=== PATIENT | male | born 1995 | race Caucasian/White ===

== ENCOUNTER → 2022-03-13 06:12 | Outpatient (CLI) | payer BC, SELFPAY ==
[2022-03-13 18:23] LABS: Alanine Aminotransferase 27 U/L (12-78); Albumin Level 3.7 g/dl (3.5-5.0); Albumin/Globulin Ratio 1.5 (1.1-1.8); Alkaline Phosphatase 77 U/L (38-126); Anion Gap 6.3 mEq/L (5-15); Aspartate Amino Transferase 27 U/L (17-59); Bilirubin,Total 0.3 mg/dl (0.2-1.3); Blood Urea Nitrogen 9 mg/dl (9-20); Calcium 8.7 mg/dl (8.4-10.2); Carbon Dioxide 35 mmol/L (22.0-30.0); Chloride 99 mmol/L (98-107); Chol/HDL Ratio 2.9 (1-3.5); Cholesterol 150 mg/dl (140-200); Estimated Glomerular Filt Rate 160 ml/min (>60); GFR (African American) 194 ML/MIN (>60); Globulin 2.4 g/dL (1.3-3.2); Glucose 98 mg/dl (74-100); HDL Cholesterol 51 mg/dl (40-60); Potassium 4.3 mmoL/L (3.5-5.1); Sodium 136 mmol/L (136-145); Total Protein,Serum 6.1 g/dl (6.3-8.2); Triglycerides 68 mg/dl (30-150); VLDL Cholesterol 14 mg/dL (0-40)
[2022-03-13 18:40] LABS: 25-OH Vitamin D, Total 30.3 ng/mL (30-100)
[2022-03-13 18:53] LABS: Thyroid Stimulating Hormone 2.33 uIU/mL (0.465-4.68)
[2022-03-13 18:59] LABS: Basophils # 0.1 K/mm3 (0-0.2); Basophils % 0.6 % (0.1-2.0); Eosinophils # 0.2 K/mm3 (0.0-0.4); Eosinophils % 1.8 % (0.1-12.0); Hematocrit 43.5 % (42.0-52.0); Hemoglobin 12.6 g/dL (14.1-18.0); Lymphocytes # 1.8 K/mm3 (0.7-4.5); Lymphocytes % 21.1 % (10-50); Mean Corpuscular Hemoglobin 29.8 pg (27.0-31.2); Mean Corpuscular Volume 102.9 fl (80-94); Mean Platelet Volume 8.6 fl (7.4-10.4); Monocytes # 0.9 K/mm3 (0.1-1.0); Monocytes % 9.9 % (1.7-9.3); Neutrophils # 5.7 K/mm3 (1.8-7.8); Neutrophils % 66.7 % (37.0-80.0); Platelet Count 220 K/mm3 (142-424); Red Blood Count 4.23 M/mm3 (4.60-6.20); Red Cell Distribution Width 14.9 % (11.5-17.5); White Blood Count 8.5 K/mm3 (4.8-10.8)
[2022-03-15 09:36] LABS: Direct LDL Cholesterol 83 mg/dL (100-129)
== END ==
PROVIDERS: PCP Emergency Medicine; Visit Provider Emergency Medicine
DX: F41.9 Anxiety disorder, unspecified (principal); G25.81 Restless legs syndrome; R53.83 Other fatigue; E55.9 Vitamin D deficiency, unspecified
CPT/HCPCS: 80053; 80061; 82306; 84439; 84443; 85025; 87522; 87902

== ENCOUNTER → 2022-03-28 16:19 | Outpatient (CLI) | payer BC, SELFPAY ==
[2022-04-02 22:02] LABS: Hep A Ab, IgM Negative; Hepatitis B Core Antibody IgM Negative; Hepatitis B Surface Antigen Negative; Hepatitis C Antibody >11.0
== END ==
PROVIDERS: PCP Emergency Medicine; Visit Provider Emergency Medicine
DX: R53.83 Other fatigue (principal); F41.9 Anxiety disorder, unspecified; Z79.899 Other long term (current) drug therapy
CPT/HCPCS: 80074

== ENCOUNTER → 2022-03-28 16:45 | Outpatient (CLI) | payer BC, SELFPAY | PROVIDERS: PCP Emergency Medicine; Visit Provider Emergency Medicine | DX: Z79.899 Other long term (current) drug therapy (principal) ==

== ENCOUNTER → 2022-04-06 11:16 | Outpatient (CLI) | payer BC, SELFPAY ==
--- NOTE | 2022-04-06 12:36 | PC.NURSE ---
PATIENT REFUSED TO FINISH TEST AND WALK TEST. STATED HE WASN'T FEELING WELL
== END ==
PROVIDERS: PCP Emergency Medicine; Visit Provider Emergency Medicine
DX: J44.9 Chronic obstructive pulmonary disease, unspecified (principal)
CPT/HCPCS: 94060; 94727; 94729

== ENCOUNTER → 2022-04-25 11:00 | Outpatient (CLI) | payer BC, SELFPAY ==
[2022-04-25 19:59] LABS: Barbiturates Screen,Urine Negative ng/ml (<200); Benzodiazepines Screen,Urine Positive ng/ml (<200)
[2022-04-25 20:00] LABS: Cannabinoid Screen,Urine Positive ng/ml (<50)
[2022-04-25 20:01] LABS: Cocaine Screen,Urine Positive ng/ml (<300); Methadone Screen,Urine Negative ng/ml (<300)
[2022-04-25 20:02] LABS: Opiate Screen,Urine Negative ng/ml (<300); Phencyclidine Screen,Urine Negative ng/ml (<25)
[2022-04-25 20:25] LABS: Amphetamine/Metha Screen,Urine Positive ng/ml (<1000)
== END ==
PROVIDERS: PCP Emergency Medicine; Visit Provider Emergency Medicine
DX: Z79.899 Other long term (current) drug therapy (principal)
CPT/HCPCS: 80305

== ENCOUNTER → 2022-05-22 11:00 | Outpatient (CLI) | payer BC, SELFPAY ==
[2022-05-22 15:09] LABS: Amphetamine/Metha Screen,Urine Negative ng/ml (<1000)
[2022-05-22 15:11] LABS: Barbiturates Screen,Urine Negative ng/ml (<200)
[2022-05-22 15:12] LABS: Benzodiazepines Screen,Urine Positive ng/ml (<200)
[2022-05-22 15:13] LABS: Cannabinoid Screen,Urine Positive ng/ml (<50); Cocaine Screen,Urine Negative ng/ml (<300)
[2022-05-22 15:14] LABS: Methadone Screen,Urine Negative ng/ml (<300); Opiate Screen,Urine Negative ng/ml (<300)
[2022-05-22 15:16] LABS: Phencyclidine Screen,Urine Negative ng/ml (<25)
== END ==
PROVIDERS: PCP Emergency Medicine; Visit Provider Emergency Medicine
DX: J44.9 Chronic obstructive pulmonary disease, unspecified (principal); Z79.899 Other long term (current) drug therapy
CPT/HCPCS: 80305

== ENCOUNTER → 2022-07-25 10:00 | Outpatient (CLI) | payer BC, SELFPAY ==
[2022-07-25 15:26] LABS: Amphetamine/Metha Screen,Urine Negative ng/ml (<1000)
[2022-07-25 15:27] LABS: Cannabinoid Screen,Urine Positive ng/ml (<50)
[2022-07-25 15:28] LABS: Barbiturates Screen,Urine Negative ng/ml (<200)
[2022-07-25 15:29] LABS: Benzodiazepines Screen,Urine Negative ng/ml (<200); Cocaine Screen,Urine Negative ng/ml (<300)
[2022-07-25 15:30] LABS: Methadone Screen,Urine Negative ng/ml (<300)
[2022-07-25 15:31] LABS: Opiate Screen,Urine Negative ng/ml (<300); Phencyclidine Screen,Urine Negative ng/ml (<25)
== END ==
PROVIDERS: PCP Emergency Medicine; Visit Provider Emergency Medicine
DX: Z79.899 Other long term (current) drug therapy (principal)
CPT/HCPCS: 80305

== ENCOUNTER → 2022-08-02 09:20 | Outpatient (CLI) | payer BC, SELFPAY ==
[2022-08-02 16:37] LABS: Barbiturates Screen,Urine Negative ng/ml (<200)
[2022-08-02 16:38] LABS: Benzodiazepines Screen,Urine Positive ng/ml (<200)
[2022-08-02 16:39] LABS: Cannabinoid Screen,Urine Positive ng/ml (<50); Cocaine Screen,Urine Negative ng/ml (<300)
[2022-08-02 16:40] LABS: Methadone Screen,Urine Negative ng/ml (<300)
[2022-08-02 16:41] LABS: Opiate Screen,Urine Negative ng/ml (<300); Phencyclidine Screen,Urine Negative ng/ml (<25)
[2022-08-02 17:47] LABS: Amphetamine/Metha Screen,Urine Positive ng/ml (<1000)
== END ==
PROVIDERS: PCP Emergency Medicine; Visit Provider Emergency Medicine
DX: Z79.899 Other long term (current) drug therapy (principal)
CPT/HCPCS: 80305

== ENCOUNTER → 2022-08-30 11:03 | Outpatient (CLI) | payer BC, SELFPAY ==
[2022-08-30 15:55] LABS: Amphetamine/Metha Screen,Urine Negative ng/ml (<1000)
[2022-08-30 15:56] LABS: Barbiturates Screen,Urine Negative ng/ml (<200)
[2022-08-30 15:57] LABS: Benzodiazepines Screen,Urine Positive ng/ml (<200); Cannabinoid Screen,Urine Positive ng/ml (<50)
[2022-08-30 15:58] LABS: Cocaine Screen,Urine Negative ng/ml (<300); Methadone Screen,Urine Negative ng/ml (<300)
[2022-08-30 15:59] LABS: Opiate Screen,Urine Negative ng/ml (<300)
[2022-08-30 16:00] LABS: Phencyclidine Screen,Urine Negative ng/ml (<25)
== END ==
PROVIDERS: PCP Emergency Medicine; Visit Provider Emergency Medicine
DX: F41.9 Anxiety disorder, unspecified (principal)
CPT/HCPCS: 80305

== ENCOUNTER 2022-11-15 11:59 | Emergency (ER) | payer MEDICARE, SELFPAY ==
[2022-11-15 12:08] VITALS: BP 149/62; PULSE 54; RESP 18; O2SAT 97; BMI 23.7
[2022-11-15 12:25] VITALS: TEMP 36.8
[2022-11-15 12:37] VITALS: PULSE 52; RESP 22; TEMP 36.8; O2SAT 89; BMI 20.9
--- NOTE | 2022-11-15 12:39 | EXP.UTC ---
Discharge Plan Disposition Patient Disposition: Left Against Medical Advice Condition: Undetermined Prescriptions Prescriptions: No Action ipratropium-albuterol 0.5 mg-3 mg(2.5 mg base)/3 mL solution for nebulization 3 ml inhalation Q4-6H PRN (Reason: shortness of breath or wheezing) Qty: 180 2RF buprenorphine-naloxone 8-2 mg tablet, sublingual 1 tab sublingual methylprednisolone [Medrol (Yuriy)] 4 mg tablets,dose pack See Rx Instructions PO PER PKG DIR Qty: 21 0RF Rx Instructions: PO PER PKG DIR alprazolam [Xanax] 0.5 mg tablet 0.5 mg PO TID Qty: 90 2RF gabapentin 800 mg tablet 800 mg PO TID Qty: 90 2RF escitalopram oxalate [Lexapro] 10 mg tablet 10 mg PO DAILY Qty: 30 0RF azithromycin [Zithromax Z-Yuriy] 250 mg tablet See Rx Instructions PO .COMPLEX Qty: 6 0RF Rx Instructions: For 250 mg dose pack: take 500 mg today (day 1), then 250 mg for 4 days (days 2-5) PO methylprednisolone [Medrol (Yuriy)] 4 mg tablets,dose pack See Rx Instructions PO PER PKG DIR Qty: 21 0RF Rx Instructions: PO PER PKG DIR albuterol sulfate [ProAir HFA] 90 mcg/actuation HFA aerosol inhaler 2 puff inhalation Q6H PRN (Reason: shortness of breath or wheezing) Qty: 8.5 3RF budesonide-formoterol [Symbicort] 160-4.5 mcg/actuation HFA aerosol inhaler See Rx Instructions .ROUTE .COMPLEX Qty: 10.2 0RF Dose Instruction: INHALE 1 DOSE ONCE A DAY Rx Instructions: INHALE 1 DOSE ONCE A DAY albuterol sulfate [Ventolin HFA] 90 mcg/actuation HFA aerosol inhaler See Rx Instructions .ROUTE .COMPLEX Qty: 18 0RF Dose Instruction: 2 PUFFS BY MOUTH EVERY 8 HOURS NEEDED FOR SHORTNESS OF BREATH WHEEZING Rx Instructions: 2 PUFFS BY MOUTH EVERY 8 HOURS NEEDED FOR SHORTNESS OF BREATH WHEEZING Referrals Follow up/Referrals: Fredy Moya MD [Primary Care Provider] - See instructions Clinical Impressions Clinical Impression: Left against medical advice Discharge ED Provider: Moon Daigle [facility] HPI General Stated complaint: Lung pain, back pain, vomiting, covid exposure Mode of Arrival: Ambulatory Source of Information: Patient and Spouse Limitations: No Limitations Time Seen by Provider: 11/15/22 12:39 Description of Symptoms (Recalled from Triage Doc. by RN): c/o vomiting, aches, chills, cough with brown sputum, middle back pain increases with pain with a deep breath. History of Present Illness Provider Complaint: Patient states that he has been having N/V body aches, chills, shortness of breath, pain in upper back between shoulder blades when he breaths coughing up brown mucous and not able to keep anything down This morning he couldnt catch his breath and had to sit on the edge of the bed to be able to breath. States that States that he was around Uncle on Sunday that had COVID States that he has continued to get worse over the last few days and today he was feeling very weak and dizzy like he is going to pass out States that he gets winded with talking and walking Does have hx of COPD Related Data Home Medications Medication Instructions Recorded Confirmed buprenorphine 8 mg-naloxone 2 mg 1 tab sublingual 08/02/22 08/30/22 sublingual tablet Previous Rx's Medication Instructions Recorded escitalopram oxalate 10 mg tablet 10 mg PO DAILY #30 tabs 03/28/22 (Lexapro) ipratropium 0.5 mg-albuterol 3 mg 3 ml inhalation Q4-6H PRN 04/25/22 (2.5 mg base)/3 mL nebulization shortness of breath or wheezing soln #180 mL alprazolam 0.5 mg tablet (Xanax) 0.5 mg PO TID #90 tabs 08/30/22 gabapentin 800 mg tablet 800 mg PO TID #90 tabs 08/30/22 methylprednisolone 4 mg tablets in See Rx Instructions PO PER PKG DIR 08/30/22 a dose pack (Medrol (Yuriy)) #21 tabs azithromycin 250 mg tablet See Rx Instructions PO .COMPLEX #6 10/13/22 (Zithromax Z-Yuriy) tabs methylprednisolone 4 mg tablets in See Rx Instructions PO PER PKG DIR 10/13/22 a dose pack (Medrol (Yuriy))
--- NOTE | 2022-11-15 12:55 | PC.NURSE ---
pt agreed to trasfer to the ED. upon taking pt over to the ED pt stated fuck this I'm going to the house. pt left AMA. @[id number]
[2022-11-15 13:03] VITALS: BP 0/0; PULSE 0; RESP 0; TEMP -17.7; TEMP 0
== END 2022-11-15 13:04 | disposition left against medical advice (07) ==
LOC: ER 12:08 → UTC 12:08
PROVIDERS: Emergency Provider Nurse Practitioner; PCP Emergency Medicine
DX: J44.1 Chronic obstructive pulmonary disease with (acute) exacerbation (principal); R09.02 Hypoxemia; R11.2 Nausea with vomiting, unspecified; R53.1 Weakness; R42 Dizziness and giddiness; F17.208 Nicotine dependence, unspecified, with other nicotine-induced disorders; Z20.822 Contact with and (suspected) exposure to COVID-19
CPT/HCPCS: 99204; 99212; G0463

== ENCOUNTER → 2022-11-24 13:18 | Outpatient (CLI) | payer MEDICARE, SELFPAY ==
[2022-11-24 15:31] LABS: Amphetamine/Metha Screen,Urine Negative ng/ml (<1000); Barbiturates Screen,Urine Negative ng/ml (<200)
[2022-11-24 15:33] LABS: Benzodiazepines Screen,Urine Positive ng/ml (<200); Cannabinoid Screen,Urine Positive ng/ml (<50)
[2022-11-24 15:34] LABS: Cocaine Screen,Urine Negative ng/ml (<300); Methadone Screen,Urine Negative ng/ml (<300)
[2022-11-24 15:35] LABS: Opiate Screen,Urine Negative ng/ml (<300)
[2022-11-24 15:36] LABS: Phencyclidine Screen,Urine Negative ng/ml (<25)
== END ==
PROVIDERS: PCP Emergency Medicine; Visit Provider Emergency Medicine
DX: Z79.899 Other long term (current) drug therapy (principal)
CPT/HCPCS: 80305

== ENCOUNTER → 2023-01-19 12:04 | Outpatient (CLI) | payer MEDICARE, BC, SELFPAY ==
[2023-01-19 19:59] LABS: Amphetamine/Metha Screen,Urine Negative ng/ml (<1000)
[2023-01-19 20:03] LABS: Benzodiazepines Screen,Urine Positive ng/ml (<200)
[2023-01-19 20:05] LABS: Methadone Screen,Urine Negative ng/ml (<300)
[2023-01-19 20:06] LABS: Phencyclidine Screen,Urine Negative ng/ml (<25)
[2023-01-19 20:29] LABS: Cannabinoid Screen,Urine Negative ng/ml (<50)
[2023-01-19 20:30] LABS: Cocaine Screen,Urine Negative ng/ml (<300)
[2023-01-19 21:59] LABS: Barbiturates Screen,Urine Negative ng/ml (<200)
[2023-01-20 00:25] LABS: Opiate Screen,Urine Negative ng/ml (<300)
== END ==
PROVIDERS: PCP Emergency Medicine; Visit Provider Emergency Medicine
DX: Z79.899 Other long term (current) drug therapy (principal)
CPT/HCPCS: 80305

== ENCOUNTER → 2023-03-20 16:01 | Outpatient (CLI) | payer MEDICARE, MEDICAID, SELFPAY ==
[2023-03-20 12:49] LABS: Amphetamine/Metha Screen,Urine Negative ng/ml (<1000); Benzodiazepines Screen,Urine Positive ng/ml (<200)
[2023-03-20 12:50] LABS: Barbiturates Screen,Urine Negative ng/ml (<200); Methadone Screen,Urine Negative ng/ml (<300)
[2023-03-20 12:51] LABS: Cannabinoid Screen,Urine Negative ng/ml (<50)
[2023-03-20 12:52] LABS: Cocaine Screen,Urine Negative ng/ml (<300)
[2023-03-20 12:53] LABS: Opiate Screen,Urine Negative ng/ml (<300)
[2023-03-20 12:54] LABS: Phencyclidine Screen,Urine Negative ng/ml (<25)
[2023-03-20 21:39] LABS: Basophils # 0.1 K/mm3 (0-0.2); Basophils % 0.6 % (0.1-2.0); Eosinophils # 0.2 K/mm3 (0.0-0.4); Hematocrit 49.1 % (42.0-52.0); Hemoglobin 14.7 g/dL (14.1-18.0); Lymphocytes # 2.2 K/mm3 (0.7-4.5); Lymphocytes % 29.4 % (10-50); Mean Corpuscular Hemoglobin 29.9 pg (27.0-31.2); Mean Corpuscular Volume 99.6 fl (80-94); Monocytes # 0.6 K/mm3 (0.1-1.0); Monocytes % 8.7 % (1.7-9.3); Neutrophils # 4.3 K/mm3 (1.8-7.8); Neutrophils % 58.3 % (37.0-80.0); Platelet Count 331 K/mm3 (142-424); Red Blood Count 4.93 M/mm3 (4.60-6.20); Red Cell Distribution Width 14.6 % (11.5-17.5); White Blood Count 7.4 K/mm3 (4.8-10.8)
[2023-03-20 21:42] LABS: Alanine Aminotransferase 18 U/L (12-78); Albumin Level 4.2 g/dl (3.5-5.0); Albumin/Globulin Ratio 1.2 (1.1-1.8); Alkaline Phosphatase 97 U/L (38-126); Anion Gap 11.7 mEq/L (5-15); Aspartate Amino Transferase 25 U/L (17-59); Bilirubin,Total 0.2 mg/dl (0.2-1.3); Blood Urea Nitrogen 8 mg/dl (9-20); Calcium 9.1 mg/dl (8.4-10.2); Carbon Dioxide 35 mmol/L (22.0-30.0); Chloride 97 mmol/L (98-107); Chol/HDL Ratio 4.4 (1-3.5); Cholesterol 171 mg/dl (140-200); Estimated Glomerular Filt Rate 133 ml/min (>60); GFR (African American) 161 ML/MIN (>60); Globulin 3.5 g/dL (1.3-3.2); Glucose 81 mg/dl (74-100); HDL Cholesterol 39 mg/dl (40-60); Potassium 4.7 mmoL/L (3.5-5.1); Sodium 139 mmol/L (136-145); Total Protein,Serum 7.7 g/dl (6.3-8.2); Triglycerides 59 mg/dl (30-150); VLDL Cholesterol 12 mg/dL (0-40)
[2023-03-20 21:58] LABS: 25-OH Vitamin D, Total 39.6 ng/mL (30-100)
[2023-03-20 21:59] LABS: T4 (Thyroxine) 9.9 ug/dl (5.53-11.0)
[2023-03-20 22:05] LABS: Direct LDL Cholesterol 117.95 mg/dL (100-129)
[2023-03-20 22:13] LABS: Thyroid Stimulating Hormone 2.26 uIU/mL (0.465-4.68)
== END ==
PROVIDERS: PCP Emergency Medicine; Visit Provider Emergency Medicine
DX: Z79.899 Other long term (current) drug therapy (principal); J44.9 Chronic obstructive pulmonary disease, unspecified; E55.9 Vitamin D deficiency, unspecified
CPT/HCPCS: 80053; 80061; 80305; 82306; 84436; 84443; 85025

== ENCOUNTER 2023-08-23 11:38 | Outpatient (CLI) | payer MEDICARE, MEDICAID, SELFPAY | END 2023-08-23 23:59 | LOC: LAB.DROPOF 11:40 | PROVIDERS: PCP Family Medicine; Visit Provider Family Medicine | DX: B37.0 Candidal stomatitis (principal); J44.1 Chronic obstructive pulmonary disease with (acute) exacerbation; R06.2 Wheezing | CPT/HCPCS: 87070 ==

== ENCOUNTER 2023-09-12 09:41 | Outpatient (CLI) | payer MEDICARE, MEDICAID, SELFPAY ==
--- NOTE | 2023-09-12 09:45 | US_ITS ---
FINAL REPORT CLINICAL HISTORY: RT ING PAIN-- COMPARISON: None FINDINGS: ULTRASOUND RIGHT GROIN: Ultrasound examination of the right groin was performed to evaluate for a inguinal hernia. No evidence of a inguinal hernia was seen. The inguinal canal appears unremarkable in appearance. There are a few small up to 1.8 cm in size nodes noted in the right groin. IMPRESSION: No ultrasound evidence of an inguinal hernia. A few small up to 1.8 cm in size nodes are noted in the right groin. Reviewed, Interpreted and Dictated by Kadi Porras MD Transcribed by Mena Brower Authenticated and [facility]
--- NOTE | 2023-09-12 09:45 | XR_ITS ---
FINAL REPORT CLINICAL HISTORY: COPD exacerbation COMPARISON: None FINDINGS: PA and lateral views of the chest are obtained. There is no prior exam for comparison. The cardiac and mediastinal silhouettes are within normal limits. The lungs are clear. There is hyperinflation of the lungs. There is no pleural effusion, pneumothorax, or acute osseous abnormality. IMPRESSION: No radiographic evidence of acute cardiac or pulmonary disease. Reviewed, Interpreted and Dictated by Kadi Porras MD Transcribed by Mena Brower Authenticated and [facility]
--- NOTE | 2023-09-12 09:45 | US_ITS ---
FINAL REPORT TECHNIQUE: Sonographic images of the testicles and scrotum were obtained in the longitudinal and transverse planes. CLINICAL HISTORY: .rt test pain COMPARISON: None FINDINGS: The right testicle measures 4 centimeters. There is no intratesticular mass. The epididymis is within normal limits. No extratesticular mass is identified. A few small punctate echogenic foci are noted. The left testicle measures 4 centimeters. There is no intratesticular mass. The epididymis is within normal limits. No extratesticular mass is identified. A few small punctate echogenic foci are noted. Color imaging reveals no evidence of testicular torsion. IMPRESSION: No evidence of intratesticular mass or testicular torsion. Bilateral microlithiasis of the testicles. Reviewed, Interpreted and Dictated by Kadi Porras MD Transcribed by Mena Brower Authenticated and [facility]
== END 2023-09-12 23:59 ==
LOC: RAD 09:42
PROVIDERS: PCP Family Medicine; Visit Provider Family Medicine
DX: J44.9 Chronic obstructive pulmonary disease, unspecified (principal); N50.811 Right testicular pain; R10.31 Right lower quadrant pain
CPT/HCPCS: 71046; 76870; 76882

== ENCOUNTER 2024-06-26 11:17 | Outpatient (CLI) | payer MEDICARE, MEDICAID, SELFPAY ==
[2024-06-26 18:00] LABS: Basophils # 0.1 K/mm3 (0-0.2); Basophils % 1.1 % (0.1-2.0); Eosinophils # 0.1 K/mm3 (0.0-0.4); Eosinophils % 2.5 % (0.1-12.0); Hemoglobin 14.8 g/dL (14.1-18.0); Lymphocytes # 1.6 K/mm3 (0.7-4.5); Lymphocytes % 29.3 % (10-50); Mean Corpuscular HGB Conc 31.4 g/dL (31.8-35.4); Mean Corpuscular Hemoglobin 30.8 pg (27.0-31.2); Mean Platelet Volume 8.4 fl (7.4-10.4); Monocytes # 0.5 K/mm3 (0.1-1.0); Monocytes % 9.7 % (1.7-9.3); Neutrophils # 3.2 K/mm3 (1.8-7.8); Neutrophils % 57.4 % (37.0-80.0); Platelet Count 232 K/mm3 (142-424); Red Cell Distribution Width 13.9 % (11.5-17.5); White Blood Count 5.6 K/mm3 (4.8-10.8)
[2024-06-26 18:01] LABS: Chloride 105 mmol/L (98-107); Potassium 4.1 mmoL/L (3.5-5.1); Sodium 137 mmol/L (136-145)
[2024-06-26 18:04] LABS: Alanine Aminotransferase 23 U/L (12-78); Albumin/Globulin Ratio 1.5 (1.1-1.8); Alkaline Phosphatase 70 U/L (38-126); Anion Gap 5.1 mEq/L (5-15); Aspartate Amino Transferase 34 U/L (17-59); Bilirubin,Total 0.4 mg/dl (0.2-1.3); Blood Urea Nitrogen 14 mg/dl (9-20); Carbon Dioxide 31 mmol/L (22.0-30.0); Estimated Glomerular Filt Rate 88 ml/min (>60); GFR (African American) 106 ML/MIN (>60); Globulin 2.7 g/dL (1.3-3.2); Total Protein,Serum 6.7 g/dl (6.3-8.2)
[2024-06-26 18:05] LABS: Calcium 9.2 mg/dl (8.4-10.2); Glucose 75 mg/dl (74-100)
[2024-06-26 18:06] LABS: Cholesterol 121 mg/dl (140-200); HDL Cholesterol 40 mg/dl (40-60); Triglycerides 50 mg/dl (30-150); VLDL Cholesterol 10 mg/dL (0-40)
[2024-06-26 18:17] LABS: Direct LDL Cholesterol 69.61 mg/dL (100-129)
[2024-06-26 18:37] LABS: Thyroid Stimulating Hormone 2.18 uIU/mL (0.465-4.68)
== END 2024-06-26 23:59 | disposition home or self-care (01) ==
LOC: LAB.DROPOF 06-27 10:44
PROVIDERS: PCP Family Medicine; Visit Provider Family Medicine
DX: R41.0 Disorientation, unspecified (principal); I10 Essential (primary) hypertension; F17.200 Nicotine dependence, unspecified, uncomplicated
CPT/HCPCS: 80053; 80061; 84443; 85025